=== PATIENT | male | born 1975 | race Caucasian/White ===

== ENCOUNTER 2021-04-07 18:47 | Emergency (ER) | payer MEDICAID ==
[~2021-04-07] VITALS: Ht 188 cm; Wt 86.0 kg
--- NOTE | 2021-04-07 18:57 | NUR ---
PT CAME IN CO WEAKNESS AND NAUSEA THAT STARTED TODAY. PT ADMITS TO USING METH FOR A FEW DAYS IN A ROW AND HASNT USED IN THE LAST 2 DAYS AND HAS BEEN FEELING WEAK AND TIRED. [place] [facility] [place] COMPLETE. CONNECTED TO ALL MONITORING EQUIPMENT
--- NOTE | 2021-04-07 19:46 | NUR ---
PT RESTING IN [facility]. UNABLE TO PROVIDE UA AT THIS TIME. PILLOWS PROVIDED
[2021-04-07 19:48] LABS: BASOPHILS % (AUTO) 1 % (0-1); EOSINOPHILS % (AUTO) 9 % (1-7); LYMPHOCYTES % (AUTO) 16 % (22-44); MEAN CORPUSCULAR HEMOGLOBIN 26.3 pg (27.5-34.5); MEAN CORPUSCULAR HGB CONC 32.7 g/dL (33.2-36.2); MEAN PLATELET VOLUME 7.9 fL (7.4-10.4); MONOCYTES % (AUTO) 5 % (2-9); NEUTROPHILS % (AUTO) 70 % (42-75); PLATELET COUNT 311 x10^3/uL (130-400); RED BLOOD COUNT 4.56 x10^6/uL (4.38-5.82); RED CELL DISTRIBUTION WIDTH 17.4 % (9.4-14.8)
[2021-04-07 19:50] LABS: MD NO
[2021-04-07 19:58] LABS: ALANINE AMINOTRANSFERASE 40 U/L (12-78); ANION GAP 6 mmol/L (5-15); CALCIUM 8.6 mg/dL (8.5-10.1); CHLORIDE 109 mmol/L (98-107)
[2021-04-07 20:03] LABS: ALKALINE PHOSPHATASE 124 U/L (45-117); BILIRUBIN,TOTAL 0.6 mg/dL (0.2-1.0); TOTAL PROTEIN 6.5 g/dL (6.4-8.2); TROPONIN I 0.023 ng/mL (0.000-0.045)
[2021-04-07] MEDS ORDERED: OMNIPAQUE 350 MG/ML, 100ML BOTTLE ONE (21:00)
[2021-04-07] MEDS ORDERED: FUROSEMIDE 40 MG/4 ML ONE (21:29)
[2021-04-07] MEDS ORDERED: FUROSEMIDE 40 MG/4 ML IV ONE (21:30)
--- NOTE | 2021-04-07 21:32 | NUR ---
PT RESTING IN [facility]. MEDICATED PER JAN. MARY
[2021-04-07 22:22] LABS: AMPHETAMINE SCREEN, URINE Positive (Negative); BARBITURATE SCREEN, URINE Negative (Negative); BENZODIAZEPINE SCREEN, URINE Positive (Negative); CANNABINOID SCREEN, URINE Negative (Negative); COCAINE SCREEN, URINE Negative (Negative); METHADONE SCREEN, URINE Negative (Negative); OPIATE SCREEN, URINE Negative (Negative)
[2021-04-07 22:47] VITALS: BP 131/86
== END 2021-04-07 22:57 | disposition home or self-care (01) ==
LOC: ED 22:54
DX: R06.00 Dyspnea, unspecified (principal); R53.1 Weakness; I11.0 Hypertensive heart disease with heart failure; I50.22 Chronic systolic (congestive) heart failure; R93.89 Abnormal findings on diagnostic imaging of other specified body structures; R91.8 Other nonspecific abnormal finding of lung field; R00.0 Tachycardia, unspecified; Z91.14 Patient's other noncompliance with medication regimen
CPT/HCPCS: 36415; 71045; 71275; 80053; 80307; 80320; 83880; 84484; 85025; 85379; 93005; 96374; 99285; J1940; Q9967; G0480

== ENCOUNTER 2021-06-10 18:06 | Inpatient (IN) | payer MEDICAID ==
[~2021-06-10] VITALS: Ht 188 cm; Wt 88.7 kg
[2021-06-10] MEDS ORDERED: ASPIRIN 81 MG TABLET CHEW PO ONE (18:30)
[2021-06-10] MEDS ORDERED: SODIUM CHLORIDE FLUSH 10ML SYR IVF ONE (18:30)
[2021-06-10] MEDS ORDERED: ASPIRIN 81 MG TABLET CHEW ONE (18:36)
--- NOTE | 2021-06-10 18:59 | NUR ---
PT STATES INCREASING SOB X3 DAYS. STATES HX OF QUAD BIPASS. PT STATES SOME ABD PAIN AND SWELLING. PT MEDICATED WITH ASA PER ORDERS, PLACED ON ALL MONITORS. AWAITING LABE RESULTS. PT REMAINS ON O2 TO KEEP AT >90%. CONT TO MONITOR.
--- NOTE | 2021-06-10 19:09 | NUR ---
REPORT TO MARCOS JASON.
[2021-06-10 19:16] LABS: BASOPHILS % (AUTO) 0 % (0-1); EOSINOPHILS % (AUTO) 2 % (1-7); LYMPHOCYTES % (AUTO) 18 % (22-44); MEAN CORPUSCULAR HEMOGLOBIN 23.5 pg (27.5-34.5); MEAN PLATELET VOLUME 8.2 fL (7.4-10.4); MONOCYTES % (AUTO) 7 % (2-9); NEUTROPHILS % (AUTO) 72 % (42-75); PLATELET COUNT 313 x10^3/uL (130-400); RED BLOOD COUNT 5.27 x10^6/uL (4.38-5.82); RED CELL DISTRIBUTION WIDTH 19.3 % (9.4-14.8)
[2021-06-10 19:17] LABS: ALANINE AMINOTRANSFERASE 38 U/L (12-78); ALBUMIN 3.3 g/dL (3.4-5.0); ANION GAP 6 mmol/L (5-15); CALCIUM 9.5 mg/dL (8.5-10.1); CHLORIDE 107 mmol/L (98-107); CREATININE 1.52 mg/dL (0.7-1.3)
--- NOTE | 2021-06-10 19:18 | NUR ---
RECEIVED REPORT FROM PAOLO JASON. TRANSFER OF CARE.
--- NOTE | 2021-06-10 19:20 | NUR ---
PT RESTING IN BED. PT BREATHING RAPID. PT STATING SOB STILL AND OCCASIONAL COUGH. CARD/SP02/BP MONITORS ATTACHED. TM
[2021-06-10 19:22] LABS: ALKALINE PHOSPHATASE 141 U/L (45-117); BILIRUBIN,TOTAL 1.5 mg/dL (0.2-1.0); TOTAL PROTEIN 7.5 g/dL (6.4-8.2)
[2021-06-10 19:29] LABS: TROPONIN I 0.325 ng/mL (0.000-0.045)
[2021-06-10] MEDS ORDERED: FUROSEMIDE 20 MG/2 ML ONE ×3 (19:40→21:23)
[2021-06-10] MEDS ORDERED: ALBUTEROL SULFATE 2.5 MG/3 ML ONE (19:53)
--- NOTE | 2021-06-10 19:58 | NUR ---
PT REFUSED TO TAKE NITRO AFTER ASKING AND EDUCATEING HIM MULTIPLE TIMES. PT STATES HE WILL NOT TAKE IT DUE TO THE HEADACHE.
[2021-06-10] MEDS ORDERED: FUROSEMIDE 20 MG/2 ML IV ONE ×2 (20:00→20:30)
[2021-06-10] MEDS ORDERED: ONDANSETRON 2MG/ML, 2ML ONE (20:06)
[2021-06-10] MEDS ORDERED: MORPHINE SULFATE 4 MG/ML, 1ML ONE (20:06)
--- NOTE | 2021-06-10 20:06 | NUR ---
GAVE REPORT AND TRANSFERED CARE TO BENITO JASON.
--- NOTE | 2021-06-10 20:11 | NUR ---
PTMOVED TO 39, RT AT BEDSIDE FOR BIPAP 05/04 REPORT FROM MARCOS JASON. ST 100S. RR IMRPOVED W BIPAP FROM 28 TO 18. REGI MAGALLANES WAS IN ROOM FOR EVAL. PT W INCR WHEEZING AND TACHYPNEA.
--- NOTE | 2021-06-10 20:21 | NUR ---
2ND PIV EST. PT GIVEN MOUTH SWABS. CALM ON BIPAP RN. CRACKLES AT BASES BILAT. STS FEELS SLIGHTLY BETTER. CALL JIMENEZ.
[2021-06-10] MEDS ORDERED: MORPHINE SULFATE 4 MG/ML, 1ML IVPush ONE (20:30)
[2021-06-10] MEDS ORDERED: ONDANSETRON 2MG/ML, 2ML IVPush ONE (20:30)
--- NOTE | 2021-06-10 21:02 | NUR ---
home health cna at bedside. o2 titrated up on bipap per rt. pt drowsing, easily arousable. as
--- NOTE | 2021-06-10 21:36 | NUR ---
PT REMAINS COOL AND MD BRODIE AWARE. BGL 100.
[2021-06-10] MEDS ORDERED: ONDANSETRON 2MG/ML, 2ML IVPush PRN (22:00)
[2021-06-10] MEDS ORDERED: hydrALAzine 20 MG/ML, 1ML IVPush PRN (22:00)
[2021-06-10] MEDS ORDERED: CEFTRIAXONE 2 GM in DEXTROSE 5% 50 ML IVPB SCH (22:00)
[2021-06-10] MEDS ORDERED: DOCUSATE 100 MG CAPSULE PO PRN (22:00)
[2021-06-10] MEDS ORDERED: METHOCARBAMOL 500 MG TABLET PO PRN (22:00)
[2021-06-10] MEDS ORDERED: IBUPROFEN 600 MG TABLET PO PRN (22:00)
[2021-06-10] MEDS ORDERED: GUAIFENESIN/DM 200-20MG, 10ML UDC PO PRN (22:00)
[2021-06-10] MEDS ORDERED: HEPARIN 5,000 UNITS/ML, 1ML ONE (22:14)
[2021-06-10] MEDS ORDERED: hydrALAzine 20 MG/ML, 1ML ONE (22:21)
[2021-06-10] MEDS: HEPARIN 5,000 UNITS/ML, 1ML SQ SCH (22:24)
--- NOTE | 2021-06-10 22:38 | NUR ---
report to leydi madrigal. as
[2021-06-10 22:47] LABS: MICROSCOPIC AUTO
[2021-06-11 04:22] LABS: BASOPHILS % (AUTO) 1 % (0-1); EOSINOPHILS % (AUTO) 2 % (1-7); LYMPHOCYTES % (AUTO) 17 % (22-44); MEAN CORPUSCULAR HEMOGLOBIN 24.6 pg (27.5-34.5); MEAN CORPUSCULAR HGB CONC 32.1 g/dL (33.2-36.2); MEAN PLATELET VOLUME 7.6 fL (7.4-10.4); MONOCYTES % (AUTO) 9 % (2-9); NEUTROPHILS % (AUTO) 71 % (42-75); PLATELET COUNT 287 x10^3/uL (130-400); RED CELL DISTRIBUTION WIDTH 18.3 % (9.4-14.8)
[2021-06-11 04:28] LABS: % IRON SATURATION 7 % (20-55); ANION GAP 5 mmol/L (5-15); CALCIUM 8.9 mg/dL (8.5-10.1); CHLORIDE 109 mmol/L (98-107); CREATININE 1.58 mg/dL (0.7-1.3); IRON LEVEL 35 mcg/dL (65-175); TOTAL IRON BINDING CAPACITY 472 mcg/dL (250-450)
[2021-06-11 05:28] LABS: TROPONIN I 0.257 ng/mL (0.000-0.045)
[2021-06-11] MEDS: HEPARIN 5,000 UNITS/ML, 1ML SQ SCH ×3 (06:26→22:18)
[2021-06-11] MEDS ORDERED: FUROSEMIDE 40 MG/4 ML IV SCH (07:30)
[2021-06-11 17:12] VITALS: BP 131/87
[2021-06-11] MEDS: FUROSEMIDE 40 MG/4 ML IV SCH (17:14)
[2021-06-11 18:54] VITALS: BP 133/84
[2021-06-12 01:34] VITALS: BP 130/88
[2021-06-12] MEDS: ASPIRIN 325 MG TABLET PO SCH (04:50)
[2021-06-12] MEDS: HEPARIN 5,000 UNITS/ML, 1ML SQ SCH ×3 (04:50→21:40)
[2021-06-12 05:22] LABS: BASOPHILS % (AUTO) 1 % (0-1); EOSINOPHILS % (AUTO) 5 % (1-7); LYMPHOCYTES % (AUTO) 13 % (22-44); MEAN CORPUSCULAR HEMOGLOBIN 24.3 pg (27.5-34.5); MEAN CORPUSCULAR HGB CONC 31.9 g/dL (33.2-36.2); MEAN PLATELET VOLUME 8.2 fL (7.4-10.4); MONOCYTES % (AUTO) 6 % (2-9); NEUTROPHILS % (AUTO) 76 % (42-75); PLATELET COUNT 337 x10^3/uL (130-400); RED BLOOD COUNT 5.15 x10^6/uL (4.38-5.82); RED CELL DISTRIBUTION WIDTH 18.6 % (9.4-14.8)
[2021-06-12 05:29] LABS: ALANINE AMINOTRANSFERASE 38 U/L (12-78); ALBUMIN 3.1 g/dL (3.4-5.0); ANION GAP 7 mmol/L (5-15); CALCIUM 9.4 mg/dL (8.5-10.1); CHLORIDE 101 mmol/L (98-107); CREATININE 1.57 mg/dL (0.7-1.3)
[2021-06-12 05:40] LABS: ALKALINE PHOSPHATASE 145 U/L (45-117); TOTAL PROTEIN 7.5 g/dL (6.4-8.2)
[2021-06-12 09:26] VITALS: BP 138/93
[2021-06-12] MEDS: FUROSEMIDE 40 MG/4 ML IV SCH ×2 (11:41→21:40)
[2021-06-12] MEDS: FERROUS SULFATE 325 MG TABLET PO SCH (11:41)
[2021-06-12 13:31] VITALS: BP 146/96
[2021-06-12 18:34] VITALS: BP 121/81
[2021-06-12] MEDS ORDERED: TEMAZEPAM 15 MG CAPSULE PO PRN (22:00)
[2021-06-13 01:31] VITALS: BP 130/84
[2021-06-13 04:47] LABS: BASOPHILS % (AUTO) 1 % (0-1); EOSINOPHILS % (AUTO) 7 % (1-7); LYMPHOCYTES % (AUTO) 14 % (22-44); MEAN CORPUSCULAR HEMOGLOBIN 24.3 pg (27.5-34.5); MEAN CORPUSCULAR HGB CONC 32.5 g/dL (33.2-36.2); MEAN PLATELET VOLUME 7.9 fL (7.4-10.4); MONOCYTES % (AUTO) 6 % (2-9); NEUTROPHILS % (AUTO) 73 % (42-75); PLATELET COUNT 384 x10^3/uL (130-400); RED BLOOD COUNT 5.45 x10^6/uL (4.38-5.82); RED CELL DISTRIBUTION WIDTH 18.8 % (9.4-14.8)
[2021-06-13 05:00] LABS: ANION GAP 5 mmol/L (5-15); CHLORIDE 98 mmol/L (98-107)
[2021-06-13 05:04] LABS: CHOL/HDL RATIO 8.3; CHOLESTEROL, TOTAL 174 mg/dL (140-239); CREATININE 1.61 mg/dL (0.7-1.3); HDL CHOL % 12 % (26-37); HDL CHOLESTEROL (DIRECT) 21 mg/dL (40-60); LDL CHOLESTEROL,CALCULATED 126 mg/dL (54-169); TRIGLYCERIDES 135 mg/dL (50-200); VLDL CHOLESTEROL 27 mg/dL (0-25)
[2021-06-13] MEDS ORDERED: CARVEDILOL 3.125 MG TABLET PO SCH (06:00)
[2021-06-13] MEDS: ASPIRIN 325 MG TABLET PO SCH (06:10)
[2021-06-13] MEDS: HEPARIN 5,000 UNITS/ML, 1ML SQ SCH ×2 (06:11→14:00)
[2021-06-13 06:16] VITALS: BP 121/82
[2021-06-13] MEDS ORDERED: FUROSEMIDE 40 MG TABLET PO SCH (08:00)
[2021-06-13] MEDS: FERROUS SULFATE 325 MG TABLET PO SCH (09:04)
[2021-06-13] MEDS ORDERED: ACETAMINOPHEN 325 MG TABLET PO ONE (10:30)
[2021-06-13] MEDS ORDERED: ASPI325T17 PO (13:06)
[2021-06-13] MEDS ORDERED: FERR-36 PO (13:06)
[2021-06-13] MEDS ORDERED: FURO40TA6 PO (13:06)
[2021-06-13] MEDS ORDERED: POTA20TA6 PO (13:06)
[2021-06-13] MEDS ORDERED: ATOR80TA PO (13:06)
[2021-06-13] MEDS ORDERED: CARV3.1212 PO (13:06)
[2021-06-13] MEDS ORDERED: POTASSIUM CHLORIDE 20 MEQ TAB.ER.PRT PO SCH (17:00)
[2021-06-13] MEDS ORDERED: ATORVASTATIN 80 MG TABLET PO SCH (21:00)
== END 2021-06-13 16:41 | disposition home or self-care (01) | DRG 720 ==
LOC: ED 20:57 → EDIP 22:10 → CCU 23:08 → 5SO 06-11 16:46
PROVIDERS: ADMIT Internal Medicine; ATTEND Internal Medicine
PROC: 5A09357 Assistance with Respiratory Ventilation, Less than 24 Consecutive Hours, Continuous Positive Airway Pressure (ICD-10-PCS; principal; 2021-06-10)
DX: A41.9 Sepsis, unspecified organism (principal); J96.01 Acute respiratory failure with hypoxia; I21.A1 Myocardial infarction type 2; N17.0 Acute kidney failure with tubular necrosis; I50.23 Acute on chronic systolic (congestive) heart failure; I27.20 Pulmonary hypertension, unspecified; E88.09 Other disorders of plasma-protein metabolism, not elsewhere classified; E87.1 Hypo-osmolality and hyponatremia; Z20.822 Contact with and (suspected) exposure to COVID-19; I25.10 Atherosclerotic heart disease of native coronary artery without angina pectoris; N13.30 Unspecified hydronephrosis; N18.9 Chronic kidney disease, unspecified; I13.0 Hypertensive heart and chronic kidney disease with heart failure and stage 1 through stage 4 chronic kidney disease, or unspecified chronic kidney disease; I25.2 Old myocardial infarction; I34.0 Nonrheumatic mitral (valve) insufficiency; I42.8 Other cardiomyopathies; F12.90 Cannabis use, unspecified, uncomplicated; F15.90 Other stimulant use, unspecified, uncomplicated; D50.9 Iron deficiency anemia, unspecified; Z87.891 Personal history of nicotine dependence; Z91.14 Patient's other noncompliance with medication regimen; Z95.1 Presence of aortocoronary bypass graft; Z79.899 Other long term (current) drug therapy; Z88.8 Allergy status to other drugs, medicaments and biological substances
CPT/HCPCS: 36415; 71045; 76700; 80048; 80053; 80061; 81001; 82728; 82962; 83540; 83550; 83735; 83880; 84100; 84443; 84484; 85025; 87040; 87081; 93005; 93306; 94660; 96374; 96375; G0378; J0696; J1644; J1940; J2405; U0005; J0360; J2270; U0003